=== PATIENT | male | born 1940 | race Caucasian/White ===

== ENCOUNTER → 2023-11-11 15:32 | Outpatient (REF) | payer OTHER, SELFPAY | LOC: RCS 15:32 | PROVIDERS: ATTENDING PHYSICIAN Internal Medicine Cardiovascular Disease; FAMILY PHYSICIAN Internal Medicine | DX: R06.09 Other forms of dyspnea (principal) | CPT/HCPCS: 93306 ==

== ENCOUNTER → 2023-11-13 12:30 | Outpatient (REF) | payer OTHER, SELFPAY | LOC: DHCBC/DCA 12:30 | PROVIDERS: ATTENDING PHYSICIAN Internal Medicine Cardiovascular Disease; FAMILY PHYSICIAN Internal Medicine | DX: R06.09 Other forms of dyspnea (principal) | CPT/HCPCS: 78452; 93017; A9500; J2785 ==